=== PATIENT | male | born 1995 | race Caucasian/White ===

== ENCOUNTER 2017-10-22 15:44 | Emergency (ER) | payer OTHER ==
[2017-10-22] MEDS: IBUPROFEN 600 MG TAB PO (17:28)
== END 2017-10-22 19:39 | disposition home or self-care (01) ==
LOC: FTE 15:44
DX: S92.321A Displaced fracture of second metatarsal bone, right foot, initial encounter for closed fracture (principal); S92.331A Displaced fracture of third metatarsal bone, right foot, initial encounter for closed fracture; S92.341A Displaced fracture of fourth metatarsal bone, right foot, initial encounter for closed fracture; V00.131A Fall from skateboard, initial encounter; Y92.9 Unspecified place or not applicable
CPT/HCPCS: 73630; 99283-25